=== PATIENT | female | born 1960 | race Caucasian/White ===

== ENCOUNTER → 2016-08-15 | Outpatient (CLI) | payer OTHER | LOC: RAD 12:53 | DX: R05 Cough (principal) | CPT/HCPCS: 71020 ==

== ENCOUNTER → 2021-06-05 | Outpatient (CLI) | payer OTHER | LOC: EXRD 07:44 | DX: R10.11 Right upper quadrant pain (principal); K80.20 Calculus of gallbladder without cholecystitis without obstruction | CPT/HCPCS: 76705 ==